=== PATIENT | male | born 2000 | race Hispanic/Latino ===

== ENCOUNTER 2019-12-06 16:22 | Emergency (ER) | payer SELFPAY ==
[~2019-12-06] VITALS: Ht 170.2 cm; Wt 77.1 kg
--- OUTSIDE RECORDS SUMMARY | 2019-12-06 16:25 | XMS REPORT ---
Author Author Admin, [place] Organization [facility] Address [address] [facility] [address] [place] [address] Phone Allergies, Adverse Reactions, Alerts Allergy Name Reaction Description Start Date Severity Status Provider JENNIE edgar Critical Active Zhanna Casillas RN Conditions or Problems Problem Name Problem Code Onset Date Status Entry Date Provider Comment Standard Description Annotate Need for prophylactic vaccination with unspecified combined vaccine V06.9 Active Mildred Francis LOADING MACHINE OPERATOR Need for prophylactic vaccination with unspecified combined vaccine Std screening V74.5 Active Zhanna Casillas RN Screening examination for venereal disease Medication List Medication Instructions Start Date Stop Date Generic Name NDC Status Provider Patient Instruction AZITHROMYCIN 250 MG TABS (AZITHROMYCIN) 4 tabs by mouth single dose AZITHROMYCIN 250 MG TABS (AZITHROMYCIN) Inactive AZITHROMYCIN 250 MG TABS (AZITHROMYCIN) 4 tabs by mouth single dose AZITHROMYCIN 250 MG TABS (AZITHROMYCIN) No Longer Active Zhanna Casillas RN Active Immunizations Vaccine Administration Date Value Standard Description meningococcal polysaccharide conjugate vaccine (MCV4) #2 given meningococcal vaccine, unspecified formulation chicken pox immunization #2 transcribed from official record varicella virus vaccine meningococcal polysaccharide conjugate vaccine (MCV4) transcribed from official record meningococcal vaccine, unspecified formulation meningococcal polysaccharide conjugate vaccine (MCV4) transcribed from official record meningococcal vaccine, unspecified formulation Tetanus toxoid, reduced diphtheria toxoid and acellular Pertussis vaccine, absorbed (TdaP) given transcribed from official record tetanus toxoid, reduced diphtheria toxoid, and acellular pertussis vaccine, adsorbed DTaP (Diphtheria, Tetanus, and acellular Pertussis) immunization #4 transcribed from official record diphtheria, tetanus toxoids and acellular pertussis vaccine hepatitis A immunization #1 transcribed from official record hepatitis A vaccine, unspecified formulation hepatitis B vaccine #3 transcribed from official record hepatitis B vaccine, unspecified formulation MMR (measles, mumps, rubella) virus immunization #2 transcribed from official record polio vaccine #3 transcribed from official record poliovirus vaccine, inactivated chicken pox immunization #1 transcribed from official record varicella virus vaccine DTaP (Diphtheria, Tetanus, and acellular Pertussis) immunization #3 transcribed from official record diphtheria, tetanus toxoids and acellular pertussis vaccine Hemophilus influenza B immunization #3 transcribed from official record Haemophilus influenzae type b vaccine, conjugate unspecified formulation MMR (measles, mumps, rubella) virus immunization #1 transcribed from official record DTaP (Diphtheria, Tetanus, and acellular Pertussis) immunization #2 transcribed from official record diphtheria, tetanus toxoids and acellular pertussis vaccine Hemophilus influenza B immunization #2 transcribed from official record Haemophilus influenzae type b vaccine, conjugate unspecified formulation polio vaccine #2 transcribed from official record poliovirus vaccine, inactivated Hemophilus influenza B immunization #1 transcribed from official record Haemophilus influenzae type b vaccine, conjugate unspecified formulation DTaP (Diphtheria, Tetanus, and acellular Pertussis) immunization #1 transcribed from official record diphtheria, tetanus toxoids and acellular pertussis vaccine hepatitis B vaccine #2 given transcribed from official record hepatitis B vaccine, unspecified formulation polio vaccine #1 transcribed from official record poliovirus vaccine, inactivated hepatitis B vaccine #1 given transcribed from official record hepatitis B vaccine, unspecified formulation Vital Signs Date Name Value Unit Range Description blood pressure, diastolic 66 mm[Hg] BP bro blood pressure, systolic 106 mm[Hg] BP sys pulse rate E&M 79 /min Heart rate respiratory rate E&M 20 /min Resp rate temperature E&M 98.2 [degF] Body temperature Diagnostic Results Date Name Value Unit Range Description Lab Report: Chlamydia/GC Amplification, Ct/GC PATRIC, Pharyngeal - Microbiology Neisseria gonorrhoeae DNA probe Negative Negative Nurse Visit: Nurse Visit - [facility] - Chemistry HIV rapid test results negative Lab Report: Chlamydia/GC Amplification, Ct/GC PATRIC, Pharyngeal - Lab chlamydia DNA probe Positive Negative Lab Report: Chlamydia/GC Amplification, Ct/GC PATRIC, Pharyngeal - Microbiology Neisseria gonorrhoeae, throat culture Negative Negative Encounters Date Encounter Provider Code Facility 15:10:32 CDT Est Patient Nurse - Only Visit - 11985 Mildred Moore LOADING MACHINE OPERATOR [id number] [facility] 16:25:45 CDT Est Patient Nurse - Only Visit - 22666 Zhanna Casillas RN [id number] [facility] Procedures Code Procedure Name Date Entry Date Standard Description CPT-22481 Meningococcal Conj Tetravalent (MCV4) 15:10:32 CDT [id number] Admin of Vaccine - Injection - 1 15:10:32 CDT CPT-99948 [facility] - In House 16:25:44 CDT
--- NOTE | 2019-12-06 17:25 | NUR ---
urine collected and sent to lab.
[2019-12-06 17:50] LABS: BILIRUBIN,URINE NEGATIVE (NEGATIVE); CLARITY,URINE SL CLOUDY (CLEAR); COLOR,URINE STRAW (YELLOW); KETONES,URINE NEGATIVE (NEGATIVE); LEUKOCYTE ESTERASE ,URINE NEGATIVE (NEGATIVE); NITRITE,URINE NEGATIVE (NEGATIVE); PROTEIN,URINE DIPSTICK NEGATIVE (NEGATIVE); URINE UROBILINOGEN 0.2 mg/dL (0.2 - 1)
[2019-12-06 18:03] LABS: BACTERIA,URINE RARE /HPF; RBC,URINE 21-50 /HPF (0-5)
--- NOTE | 2019-12-06 19:55 | Diagnostic Imaging Report ---
EXAM: CT Abdomen and Pelvis WITHOUT contrast INDICATION: hematuria COMPARISON: None. TECHNIQUE: Abdomen and pelvis were scanned utilizing a multidetector helical scanner from the lung base to the pubic symphysis without administration of IV contrast. Absence of intravenous contrast decreases sensitivity for detection of focal lesions and vascular pathology. Coronal and sagittal reformations were obtained. Routine protocol was performed. IV CONTRAST: None ORAL CONTRAST: Water COMPLICATIONS: None RADIATION DOSE: Total DLP: 333.99 mGy-cm Estimated effective dose: (DLP x 0.015 x size factor) mSv CTDIvol has been reviewed. It is below the limits set by the Radiation Protocol Committee (RPC). FINDINGS: LINES and TUBES: None. LOWER THORAX: Unremarkable HEPATOBILIARY: No focal hepatic lesions seen within the limitation of noncontrast exam. No biliary ductal dilation. GALLBLADDER: No radio-opaque stones or sludge. No gallbladder wall thickening. SPLEEN: No splenomegaly.. PANCREAS: The unenhanced pancreas shows no focal masses. There is no ductal dilatation. ADRENALS: The adrenal glands are unremarkable. KIDNEYS/URETERS: There are two punctate nonobstructive calculi in the left renal interpole measures 1 and 3 mm. There is a 4 mm nonobstructing calculi at the left UP junction (series 3, image 79). No hydronephrosis. No cystic or solid mass lesions. GI TRACT: No abnormal distention, wall thickening, or evidence of bowel obstruction. PELVIC ORGANS/BLADDER: Unremarkable. LYMPH NODES: No lymphadenopathy. VESSELS: Vessels are incompletely evaluated due to lack of IV contrast. However no definite aneurysm seen. PERITONEUM / RETROPERITONEUM: No free air or fluid. BONES: No abnormal lytic or blastic lesion. SOFT TISSUES: Unremarkable. IMPRESSION: Two punctate nonobstructive calculi in the left renal interpole measures 1 and 3 mm. A 4 mm nonobstructing calculi at the left UP junction. No hydronephrosis or hydroureter. Signed by: Boby Gaitan MD on 12/06/2019 7:52 PM
[2019-12-06 20:19] VITALS: BP 132/91
== END 2019-12-06 20:25 | disposition home or self-care (01) ==
LOC: ER 16:22
DX: R30.0 Dysuria (principal); R31.9 Hematuria, unspecified; N20.1 Calculus of ureter
CPT/HCPCS: 74176; 81001; 82270; 99283

== ENCOUNTER 2021-12-16 14:44 | Emergency (ER) | payer BC ==
[~2021-12-16] VITALS: Ht 167.6 cm; Wt 79.4 kg
[2021-12-16] MEDS ORDERED: KETOROLAC TROME10 MG PO (16:06)
== END 2021-12-16 16:12 | disposition home or self-care (01) ==
LOC: FSED 15:10
DX: R10.9 Unspecified abdominal pain (principal); N20.0 Calculus of kidney; F17.210 Nicotine dependence, cigarettes, uncomplicated
CPT/HCPCS: 74176; 80053; 81003; 85025; 99283

== ENCOUNTER → 2022-01-23 | Day surgery (SDC) | payer BC ==
[2022-01-21 12:23] LABS: BASOPHILS % 0.3 % (0.0-1.0); EOSINOPHILS # (AUTO) 0.1 (0.0-0.4); EOSINOPHILS % 0.9 % (0.0-6.0); HEMATOCRIT 45.8 % (38.2-49.6); HEMOGLOBIN 14.8 g/dL (14.0-18.0); LYMPHOCYTES # (AUTO) 2.5 (1.0-3.2); MEAN CORPUSCULAR HEMOGLOBIN 31.2 pg (28-32); MEAN CORPUSCULAR HGB CONC 32.3 g/dL (31-35); MEAN CORPUSCULAR VOLUME 96.4 fL (81-99); MONOCYTES # (AUTO) 0.8 (0.2-0.8); NEUTROPHILS # (AUTO) 5.8 (2.1-6.9); NEUTROPHILS % 62.6 % (38.7-80.0); PLATELET COUNT 333 x10e3/uL (140-360); RED BLOOD COUNT 4.75 x10e6/uL (4.3-5.7); RED CELL DISTRIBUTION WIDTH 12.8 % (11.7-14.4)
[2022-01-21 12:45] LABS: CALCIUM 8.6 mg/dL (8.4-10.2); CREATININE, SERUM 0.82 mg/dL (0.72-1.25)
[~2022-01-23] MED LIST: ACETAMINOPHEN/CODEINE 300MG - 30MG TAB ONE; B&O 60MG R/S 60 MG SUPP PR ONE; CEFTRIAXONE 1 GM VIAL ONE; DEXAMETHASONE SOD PHOS INJ 4 MG/ML SDV ONE; FENTANYL CITRATE/PF 100MCG/2 ML INJ ONE; FLOMAX0.4 MG PO; IOPAMIDOL 610MG/1ML 300 MG/ML VIAL IV ONE; KETOROLAC TROME10 MG PO; LIDOCAINE HCL 2% LOCAL INJ 5 ML SDV VIAL INJ ONE; MIDAZOLAM HCL 2 MG/2 ML VIAL ONE; ONDANSETRON HCL INJ 2MG/ML 2ML 2 MG/ML VIAL ONE; PHENAZOPYRIDINE HCL 100 MG TAB ONE; POVIDONE IODINE 0.05% 0.05 % ML PO ONE; PROPOFOL IV EMULSION 10 MG/ML 20 ML VIAL ONE; SEVOFLURANE INHAL SOLN 250 ML PEN BTL ONE
[2022-01-23 10:15] VITALS: BP 148/99
== END | disposition home or self-care (01) ==
LOC: OR 05:48
PROVIDERS: ATTEND Urology
DX: N20.0 Calculus of kidney (principal); Z88.8 Allergy status to other drugs, medicaments and biological substances; Z01.812 Encounter for preprocedural laboratory examination; Z01.818 Encounter for other preprocedural examination; Z20.822 Contact with and (suspected) exposure to COVID-19
CPT/HCPCS: 36415; 50590; 74018; 80048; 84550; 85025; C1758; J0696; J1100; J2001; J2250; J2405; J2704; J3010; Q9967; U0002